=== PATIENT | male | born 1960 | race Caucasian/White ===

== ENCOUNTER 2018-06-11 17:14 | Outpatient (CLI) | payer MEDICARE | END 2018-06-11 17:15 | disposition critical access hospital (66) | LOC: EMS 17:14 | PROVIDERS: ATTEND Surgery | DX: I46.9 Cardiac arrest, cause unspecified (principal) | CPT/HCPCS: A0425; A0433 ==

== ENCOUNTER 2018-06-11 17:31 | Emergency (ER) | payer MEDICARE, OTHER ==
--- NOTE | 2018-06-11 17:41 | ED Physician Documentation ---
PD HPI CPR - Stated complaint Stated Complaint: CPR - History obtained from History obtained from: EMS - History of Present Illness Timing - onset: Today (57-year-old gentleman, reportedly on dialysis was taking out the garbage and then collapsed in the driveway. Attended to by paramedics who found him to be variously in V. fib, V. tach and PEA. Prior to arrival he had CPR ongoing and has had 5 rounds of epinephrine, amiodarone, calcium, bicarb.) Review of Systems Unable to obtain: Intubated PD ED PE NORMAL - Vitals Vital signs reviewed: Yes - General General: Other (He is obtunded and intubated with heavy blood from the endotracheal tube) - HEENT HEENT: Other (Fixed and dilated) PD MEDICAL DECISION MAKING - ED course ED course: This is a 57-year-old gentleman who presents on cardiac arrest with CPR ongoing. Prior to arrival had already been shocked about 5 times and had several rounds of appropriate medications including appropriate treatment for potential hyperkalemia. Despite this on her first pulse check he was in V. fib, he was shocked and on the second pulse check was in an agonal wide complex bradycardic PEA with no cardiac motion on ultrasound and the code was called at [id number] Departure - Departure Disposition: 20 Clinical Impression: Sudden cardiac
== END 2018-06-11 20:00 | disposition expired ==
LOC: EDUNIT# → ED 17:31
DX: I46.9 Cardiac arrest, cause unspecified (principal); E87.5 Hyperkalemia; I49.01 Ventricular fibrillation
CPT/HCPCS: 92950; 99283; 99285